=== PATIENT | female | born 1995 | race Caucasian/White ===

== ENCOUNTER 2020-02-22 22:08 | Emergency (ER) | payer OTHER ==
[2020-02-22] MEDS ORDERED: ACETAMINOPHEN 325 MG TABLET PO ONE (22:36)
--- NOTE | 2020-02-22 23:13 | ER Document Report ---
ED GI/ - General Chief Complaint: Lower Abdominal Pain Stated Complaint: VAGINAL BLEEDING 5 WKS PREG Time Seen by Provider: 02/22/20 23:08 Mode of Arrival: Ambulatory Information source: Patient Notes: 25-year-old female who states she is approximately 5 weeks presents to the emergency room complaining of lower abdominal pain that she describes as pressure that started earlier today. Complains of nausea but no vomiting. No fevers. No new urinary symptoms, no vaginal discharge, no bleeding. She is a 3 para 2 with a confirmed test at the [facility] a week ago. Has not had any OB care as to date. Has her first appointment on March 22. No medications for pain. TRAVEL OUTSIDE OF THE [place] IN LAST 30 DAYS: No - HPI Patient complains to provider of: Pelvic pain, Timing/Duration: Sudden, Persistent Quality of pain: Pressure Severity at maximum: Mild - Related Data Allergies/Adverse Reactions: No Known Allergies Allergy (Unverified 02/22/20 22:29) Past Medical History - General Information source: Patient Last Menstrual Period: 01/16/20 - Social History Smoking Status: Former Smoker Chew tobacco use (# tins/day): No Frequency of alcohol use: None Drug Abuse: None Lives with: Family Family History: Reviewed & Not Pertinent Patient has suicidal ideation: No Patient has homicidal ideation: No - Medical History Medical History: Negative Review of Systems - Review of Systems Constitutional: No symptoms reported EENT: No symptoms reported Cardiovascular: No symptoms reported Respiratory: No symptoms reported Gastrointestinal: No symptoms reported Genitourinary: No symptoms reported Female Genitourinary: Last menstrual period - 01/16/2020, , Other - Pelvic pain Musculoskeletal: No symptoms reported Skin: No symptoms reported Neurological/Psychological: No symptoms reported -: Yes All other systems reviewed and negative Physical Exam - Vital signs Vitals: Temp Pulse Resp BP Pulse Ox 98.5 F 82 22 H 149/90 H 97 02/22/20 22:18 02/22/20 22:18 02/22/20 22:18 02/22/20 22:18 02/22/20 22:18 - General General appearance: Appears well, Alert In distress: Mild - HEENT Head: Normocephalic, Atraumatic Eyes: Normal Pupils: PERRL - Respiratory Respiratory status: No respiratory distress Chest status: Nontender Breath sounds: Normal Chest palpation: Normal - Cardiovascular Rhythm: Regular Heart sounds: Normal auscultation Murmur: No - Abdominal Inspection: Normal Distension: No distension Bowel sounds: Normal Tenderness: Nontender Organomegaly: No organomegaly - Neurological Neuro grossly intact: Yes Cognition: Normal Orientation: AAOx4 [place] Coma Scale Eye Opening: Spontaneous [place] Coma Scale Verbal: Oriented [place] Coma Scale Motor: Obeys Commands [place] Coma Scale Total: 15 Speech: Normal Motor strength normal: LUE, RUE, LLE, RLE Sensory: Normal - Skin Skin Temperature: Warm Skin Moisture: Dry Skin Color: Normal Course - Re-evaluation Re-evalutation: 02/23/20 02:16 Patient is currently resting comfortably pain-free on exam. Reviewed lab and ultrasound results with patient. Patient was counseled to call her [facility] tomorrow for a follow-up appointment. She was given strict return to the emergency room guidelines. Return for any new or worsening symptoms. All questions were answered. Patient verbalized understanding and agrees with plan of care. - Vital Signs Vital signs: Temp Pulse Resp BP Pulse Ox 99.0 F 90 17 133/84 H 97 02/23/20 02:41 02/23/20 02:34 02/23/20 02:34 02/23/20 02:34 02/23/20 02:34 - Laboratory Result Diagrams: 02/22/20 23:41 02/22/20 23:41 Laboratory results interpreted by me: 02/22/20 02/22/20 02/22/20 22:55 23:41 23:41 MCHC 36.4 H AST 54 H ALT 87 H Beta HCG, Quant 2760.30 H Urine Blood SMALL H - Diagnostic Test Radiology reviewed: Reports reviewed Discharge - Discharge Clinical Impression: Abdominal pain affecting Condition: Stable Disposition: HOME, SELF-CARE Instructions: Pelvic Pain in ([facility]) Additional Instructions: Tylenol as needed for pain. Call your [facility] tomorrow for a follow-up appointment. Return for any new or worsening symptoms.
[2020-02-22 23:22] LABS: APPEARANCE,URINE CLEAR; BILIRUBIN,URINE NEGATIVE (NEGATIVE); COLOR,URINE YELLOW; GLUCOSE, URINE NEGATIVE (NEGATIVE); KETONES,URINE NEGATIVE (NEGATIVE); LEUKOCYTE ESTERASE,URINE NEGATIVE (NEGATIVE); NITRITE,URINE NEGATIVE (NEGATIVE); PROTEIN,URINE NEGATIVE (NEGATIVE); URINE SPECIFIC GRAVITY 1.023; UROBILINOGEN,URINE NEGATIVE mg/dL (<2.0)
[2020-02-22 23:55] LABS: ABSOLUTE EOSINOPHILS # (AUTO) 0.1 10^3/uL (0.0-0.6); ABSOLUTE MONOCYTES (AUTO) 0.9 10^3/uL (0.1-1.4); ABSOLUTE NEUT (AUTO) 6.5 10^3/uL (1.7-8.2); BASOPHILS % (AUTO) 0.3 % (0-2); EOSINOPHILS % (AUTO) 0.7 % (0-6); HEMATOCRIT 39.5 % (36.0-47.0); HEMOGLOBIN 14.4 g/dL (12.0-15.5); LYMPHOCYTES % (AUTO) 28.4 % (13-45); MEAN CORPUSCULAR HEMOGLOBIN 32.1 pg (27.0-33.4); MEAN CORPUSCULAR HGB CONC 36.4 g/dL (32.0-36.0); MEAN CORPUSCULAR VOLUME 88 fl (80-97); MONOCYTES % (AUTO) 8.5 % (3-13); PLATELET COUNT 307 10^3/uL (150-450); RED BLOOD COUNT 4.47 10^6/uL (3.72-5.28); RED CELL DISTRIBUTION WIDTH 13.8 % (11.5-14.0); SEGMENTED NEUTROPHILS % (AUTO) 62.1 % (42-78); TOTAL CELLS COUNTED % (AUTO) 100 %; WHITE BLOOD COUNT 10.5 10^3/uL (4.0-10.5)
[2020-02-23 00:19] LABS: ALBUMIN 4.4 g/dL (3.5-5.0); ALKALINE PHOSPHATASE 71 U/L (38-126); ANION GAP 10 (5-19); ASPARTATE AMINO TRANSFERASE 54 U/L (14-36); BILIRUBIN,TOTAL 0.6 mg/dL (0.2-1.3); BLOOD UREA NITROGEN 10 mg/dL (7-20); CALCIUM 9.5 mg/dL (8.4-10.2); CARBON DIOXIDE 25 mmol/L (22-30); CHLORIDE 102 mmol/L (98-107); GLUCOSE 102 mg/dL (75-110); POTASSIUM 4.4 mmol/L (3.6-5.0); TOTAL PROTEIN 7.1 g/dL (6.3-8.2)
--- NOTE | 2020-02-23 01:18 | RADIOLOGY REPORT (SQ) ---
EXAM DESCRIPTION: US TRANSVAGINAL COMPLETED DATE/TME: 02/22/2020 23:18 CLINICAL HISTORY: 25 years, Female, pain COMPARISON: None. TECHNIQUE: Emergent OB ultrasound LIMITATIONS: None. FINDINGS: The uterus measures 8.8 x 5.3 x 4.0 cm. There is an intrauterine gestational sac. Questionable tiny yolk sac. No definitive pole or detectable heart tones. The maternal ovaries are not well seen likely due to their position in the pelvis. No adnexal cyst or mass. No free fluid. Current ultrasound age 5 weeks 4 days IMPRESSION: Intrauterine gestational sac with possible small yolk sac. No pole or heart tones at this time. Close obstetric follow-up recommended copyright 2010 [employer]- All Rights Reserved
[2020-02-23 02:42] VITALS: BP 133/84
== END 2020-02-23 02:42 | disposition home or self-care (01) ==
LOC: ER 22:08
DX: O20.9 Hemorrhage in early pregnancy, unspecified (principal); R10.30 Lower abdominal pain, unspecified; R11.0 Nausea; Z3A.01 Less than 8 weeks gestation of pregnancy
CPT/HCPCS: 36415; 76817; 80053; 81001; 83690; 84702; 85025; 93976; 99284